=== PATIENT | female | born 1965 | race Caucasian/White ===

== ENCOUNTER 2018-03-04 13:36 | Emergency (ER) | payer OTHER, BC ==
[2018-03-04 13:44] VITALS: O2SAT 100
[2018-03-04] MEDS ORDERED: Naproxen 500 MG TAB PO STA (13:51)
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
[2018-03-04] MEDS ORDERED: Naproxen 500 MG TAB PO ONE (14:44)
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
[2018-03-04] MEDS ORDERED: PROPARACAINE/FLUORESCEIN SOD 100 DROP/5 ML BOTTLE OU STA (14:56)
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
[2018-03-04] MEDS ORDERED: PROPARACAINE/FLUORESCEIN SOD 100 DROP/5 ML BOTTLE ONE (14:59)
[2018-03-04 16:03] VITALS: BP 155/65; PULSE 84; RESP 17; TEMP 97.7
== END 2018-03-04 15:55 | disposition home or self-care (01) ==
LOC: H.ER 13:36
DX: S53.401A Unspecified sprain of right elbow, initial encounter (principal); S53.402A Unspecified sprain of left elbow, initial encounter; M25.569 Pain in unspecified knee; V43.52XA Car driver injured in collision with other type car in traffic accident, initial encounter; Y92.410 Unspecified street and highway as the place of occurrence of the external cause

== ENCOUNTER 2018-04-23 09:37 | Emergency (ER) | payer BC, OTHER ==
[2018-04-23 09:40] VITALS: TEMP 98; O2SAT 100
[2018-04-23] MEDS ORDERED: Naproxen 500 MG TAB PO ONE ×2 (10:06→10:19)
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
[2018-04-23 11:21] VITALS: BP 137/83; PULSE 62; RESP 15
== END 2018-04-23 11:23 | disposition home or self-care (01) ==
LOC: H.ER 09:37
DX: M54.9 Dorsalgia, unspecified (principal)